=== PATIENT | female | born 1985 | race Caucasian/White ===

== ENCOUNTER → 2020-12-24 17:35 | Outpatient (CLI) | payer OTHER, SELFPAY ==
[2020-12-24 18:48] LABS: Add Manual Diff / Slide Review NO; Basophils Absolute Auto 100 /uL (0-100); Basophils Percent Auto 1.4 % (0-2); Eosinophils Absolute Auto 100 /uL (0-450); Eosinophils Percent Auto 1.2 % (2-4); Hematocrit 42.5 % (36-46); Hemoglobin 14.7 g/dL (12.0-16.0); Lymphocytes Absolute Auto 3300 /uL (1100-4500); Lymphocytes Percent Auto 37.6 % (25-40); Mean Corpuscular HGB Conc 34.6 % (30-36); Mean Corpuscular Hemoglobin 30.9 PG (26-34); Mean Corpuscular Volume 89.2 fL (80-100); Monocytes Absolute Auto 400 /uL (0-900); Monocytes Percent Auto 4.9 % (3-14); Neutrophils Absolute Auto 4800 /uL (1500-7000); Neutrophils Percent Auto 54.9 % (50-75); Platelet Count 302 X10^3/uL (150-400); Red Blood Cell Count 4.77 X10^6/uL (4.0-5.2); Red Cell Distribution Width 12.6 % (11.6-14.8); White Blood Cell Count 8.8 X10^3/uL (4.5-11.0)
== END ==
PROVIDERS: PCP Student in an Organized Health Care Education/Training Program; Referring Provider Student in an Organized Health Care Education/Training Program; Visit Provider Student in an Organized Health Care Education/Training Program
DX: R53.83 Other fatigue (principal)
CPT/HCPCS: 36415; 84443; 85025

== ENCOUNTER → 2021-02-09 16:07 | Outpatient (CLI) | payer OTHER, SELFPAY ==
--- NOTE | 2021-02-09 | DI.US.S_ITS ---
PROCEDURE: US OB <= 14 WEEKS FETUS INDICATIONS: SIZE AND DATES OUTSIDE/PRIOR DATING DATA: Last menstrual period (LMP): 12/15/2020 LMP-based estimated date of delivery (TATY): 09/21/2021. First dating scan (date and location): 02/09/2021. Estimated date of delivery (TATY) from first dating scan: 09/20/2021. TECHNIQUE: Real-time scanning was performed of the fetus and maternal pelvic organs, with image documentation. Endovaginal scanning was also performed to better visualize the fetus and maternal ovaries. COMPARISON: None. FINDINGS: Embryo: Haslett-rump length measures 1.7 cm corresponding to 8 weeks 1 day. Heart rate: 178 Measurement variability in dating: +/- 4 weeks by LMP, +/- 7 days by mean sac diameter (use before 6 weeks gestation if crown-rump length not able to be measured), +/- 5 days by crown-rump length (up to 8 weeks 6 days gestation), +/- 7 days by crown-rump length (up to 13 weeks 6 days gestation). Maternal organs: Ovaries within normal limits, with left corpus luteal cyst . IMPRESSION: 8 week 1 day single living IUP. Dictated by: Jeronimo Monroe [facility] Interpreted: Joy Saleh MD on 02/09/2021 at 16:45 Transcribed by: HINA on 02/09/2021 at 16:46 Approved by: Joy Saleh M.D. on 02/09/2021 at 16:59
== END ==
PROVIDERS: PCP Student in an Organized Health Care Education/Training Program; Referring Provider Student in an Organized Health Care Education/Training Program; Visit Provider Student in an Organized Health Care Education/Training Program
DX: Z34.91 Encounter for supervision of normal pregnancy, unspecified, first trimester (principal); Z3A.08 8 weeks gestation of pregnancy
CPT/HCPCS: 76801; 76817

== ENCOUNTER → 2021-05-24 12:39 | Outpatient (CLI) | payer OTHER, SELFPAY ==
--- NOTE | 2021-05-24 | DI.US.S_ITS ---
PROCEDURE: US OB >= 14 WEEKS FETUS INDICATIONS: ANATOMY OUTSIDE/PRIOR DATING DATA: Last menstrual period (LMP): 12/15/2020 LMP-based estimated date of delivery (TATY): 09/21/2021. First dating scan (date and location): 02/09/2021. Estimated date of delivery (TATY) from first dating scan: 09/20/2021. The calculations are made using the ultrasound TATY of 09/20/2021. TECHNIQUE: Real-time scanning was performed of the fetus, with image documentation and biometric measurements. COMPARISON: [facility], , OB <= 14 WEEKS FETUS, 02/09/2021, 16:16. FINDINGS: General: A single living intrauterine gestation is present. Presentation: Vertex. Placenta: Placental position is posterior , without previa. Amniotic fluid index: 14.3 cm, normal range is 5-24 cm. heart rate: 143 beats per minute. Maternal cervical canal: 3.7 cm long. Normal lower limit is 2.5 cm. biometrics: Biparietal diameter: 22 weeks Head circumference: 22 weeks 4 days Abdominal circumference: 24 weeks 2 days Femur length: 23 weeks 2 days Clinically estimated gestational age: 23 weeks Composite gestational age from present scan: 23 weeks Estimated weight and percentile: 616 g; 75th percentile. Anatomic survey: Neuro: Ventricles are non-dilated at less than 10 mm. Cisterna magna is normal at 3-11 mm. Cerebellum is normal in size and morphology. Nuchal skin fold: Normal at less than 6 mm between 14-21 weeks gestational age. Face: Nose and lips, facial profile are normal. Spine: No evidence for spina bifida. Heart: 4-chambered heart is present, with normal ventricular outflow tracts. Diaphragm: Diaphragm is intact. Stomach: Left-sided stomach is present. Kidneys: No hydronephrosis. Normal is less than 5 mm in 2nd trimester, less than 7 mm in 3rd trimester. Cord: 3-vessel cord has orthotopic insertion. Bladder: Normal in size. Extremities: All 4 extremities identified. IMPRESSION: 1. Normal interval growth. 2. Normal anatomic survey. We strive to produce accurate, complete, and clear reports of imaging services. To assist us in improving patient care, this report was composed using standard report templates and voice recognition software. Therefore, it may contain abnormal punctuation, insertions and/or omissions. Occasional wrong-word or sound-alike substitutions may occur. Though we review the report and make efforts to correct it, we do recommend that the report be read carefully in proper context to recognize any text inaccuracies. Dictated by: Jeronimo FOX Interpreted: Jessika Hartman MD on 05/24/2021 at 13:50 Transcribed by: AJ on 05/24/2021 at 13:54 Approved by: Jessika Hartman M.D. on 05/24/2021 at 14:02
== END ==
PROVIDERS: PCP Student in an Organized Health Care Education/Training Program; Referring Provider Student in an Organized Health Care Education/Training Program; Visit Provider Student in an Organized Health Care Education/Training Program
DX: Z36.89 Encounter for other specified antenatal screening (principal); Z3A.23 23 weeks gestation of pregnancy
CPT/HCPCS: 76811

== ENCOUNTER → 2021-08-27 09:28 | Outpatient (ROUT) | payer OTHER, SELFPAY | PROVIDERS: PCP Student in an Organized Health Care Education/Training Program; Visit Provider Student in an Organized Health Care Education/Training Program | DX: Z36.85 Encounter for antenatal screening for Streptococcus B (principal) | CPT/HCPCS: 87081 ==

== ENCOUNTER 2021-09-22 15:11 | Observation (INO) | payer OTHER, SELFPAY ==
--- NOTE | 2021-09-22 16:12 | DI.US.S_ITS ---
PROCEDURE: US OB BIOPHYSICAL PROFILE INDICATIONS: past dates OUTSIDE/PRIOR DATING DATA: Last menstrual period (LMP): 12/15/2020. LMP-based estimated date of delivery (TATY): 09/21/2021. First dating scan (date and location): 02/09/2021. Estimated date of delivery (TATY) from first dating scan: 09/20/2021. TECHNIQUE: Real-time scanning was performed of the fetus for biophysical profile, with image documentation. Color and pulse Doppler interrogation was also performed of the umbilical artery near its insertion into the placenta. Endovaginal scanning: No COMPARISON: None. FINDINGS: General: A single living intrauterine gestation is present. Presentation: Cephalic. Placenta: Placental position is posterior , without previa. Amniotic fluid index: 13.2 cm, normal range is 5-24 cm. heart rate: 140 beats per minute. Maternal cervical canal: Not visualized Clinically estimated gestational age: 40 week 2 day Biophysical profile: Tone: 2 points. Movement: 2 points. Respiration: 2 points. Largest pocket of fluid: 2 points. , 5.5 cm IMPRESSION: Single live intrauterine consistent with a 40 week 2 day gestation. Biophysical profile 12/06 Approved by: Bobby Ryan M.D. on 09/22/2021 at 16:26
== END 2021-09-22 17:20 | disposition home or self-care (01) ==
PROVIDERS: Admitting Provider Student in an Organized Health Care Education/Training Program; PCP Student in an Organized Health Care Education/Training Program; Referring Provider Student in an Organized Health Care Education/Training Program; Visit Provider Student in an Organized Health Care Education/Training Program
DX: O48.0 Post-term pregnancy (principal); Z3A.40 40 weeks gestation of pregnancy
CPT/HCPCS: 59025; 76819; G0378; G0379

== ENCOUNTER 2021-09-25 10:00 | Outpatient (CLI) | payer OTHER, SELFPAY | END 2021-09-25 10:57 | disposition home or self-care (01) | LOC: OB 09-29 14:00 | PROVIDERS: PCP Student in an Organized Health Care Education/Training Program; Referring Provider Student in an Organized Health Care Education/Training Program; Visit Provider Student in an Organized Health Care Education/Training Program | DX: O48.0 Post-term pregnancy (principal); Z3A.40 40 weeks gestation of pregnancy | CPT/HCPCS: 59025; G0378; G0379 ==

== ENCOUNTER 2021-09-27 19:14 | Inpatient (IN) | payer OTHER, SELFPAY ==
--- NOTE | 2021-09-27 20:13 | P.HPOB_ITS ---
OB HPI Date/Time Date of admission: 09/27/21 Date Patient Seen: 09/27/21 Time Patient Seen: 20:14 History of Present Condition Chief complaint: Narrative: Andrae Chang is a 35 year old at 41w0d with TATY of 09/20/21 per first trimester ultrasound. She presents for induction of labor secondary to post- dates. testing in the 40th week has been within normal limits. Her course was complicated by bacterial vaginosis in the first trimester; treated and resolved. She also had strep pharyngitis in her 37th week that was treated and resolved. LABS/IMAGING: ABO A positive, antibody negative on 01/20/21. Rubella immune. Hepatitis-B surface antigen negative. HIV, HSV 1 and 2 negative. GC/chlamydia negative. Treponemal antibody negative. Varicella titer positive. Pap smear plus HPV DNA negative in 2019. Urine culture negative on 02/23/21. Hemoglobin/hematocrit 13.4/38.7 on 01/20/21. Repeat hemoglobin/hematocrit 12.0/34.4 on 07/29/21. TSH within normal limits. 1 hour Glucola negative on 07/01/21. GBS negative on 08/27/21. NIPT negative, 02/23/21, male. Dating US: 02/09/22, 8w1d, TATY 09/20/21 Anatomy Scan: 05/24/21, 23w0d, normal BPP: 09/22/21, 40w2d, 8/8, SARANYA 13.2 cm OBSTETRIC HISTORY: # 1 Delivery date: 03/02/2019 Weeks Gestation: 40 +2 labor: no Delivery type: Hours of labor: 18 Anesthesia type: epidural Delivery [facility]: [facility] Sex: Male weight: 7lb 9oz Name: Mg GYNECOLOGICAL HISTORY: None PAST MEDICAL HISTORY: depression PAST SURGICAL HISTORY: Tonsillectomy, age 30 Ovarian cyst rupture with cystectomy, 2011 FAMILY HISTORY: Noncontributory SOCIAL HISTORY: to Ki, one child, Mg. 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 Recently moved up from [place] to be closer to family. 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 [facility] Social History Smoking Status: Former smoker Meds Home Medications and Allergies Home Medications Medication Instructions Recorded Confirmed Type 09/27/21 09/27/21 History Allergies Allergy/AdvReac Type Severity Reaction Status Date / Time sulfadiazine Allergy Mild Rash Verified 09/27/21 19:47 Review of Systems Review of Systems Narrative: All remaining ROS were reviewed and negative except as addressed. OB Exam Narrative Exam Narrative: General: NAD Skin: Color unremarkable, no rash nor lesions HEENT: Neck supple with midline trachea Lungs: CTAB Heart: Normal rate, and regular rhythm, S1, S2 normal, no murmur, click, rub or gallop Abdomen: Gravid, soft, non-tender Extremities: No edema, no cyanosis Pelvis: Normal female external genitalia Presentation: vertex Cervix: 1.5/50/-3/posterior/soft Monitoring: Variability: Moderate Baseline: 135 Accelerations: Present Decelerations: few variables Contractions: intermittent Strength: mild Objective Labs Result Diagrams: 09/27/21 20:05 Assessment and Plan Assessment and Plan Assessment and Plan narrative: 1. IUP at 41w0d 2. [id number] 3. Post-dates Plan: Admit to Labor and delivery with routine orders. Cytotec induction followed by pitocin. Anticipate vaginal delivery. Questions answered, appropriate consents will be signed.
[2021-09-27 20:33] LABS: Add Manual Diff / Slide Review NO; Basophils Absolute Auto 100 /uL (0-100); Basophils Percent Auto 0.7 % (0-2); Eosinophils Absolute Auto 100 /uL (0-450); Eosinophils Percent Auto 0.7 % (2-4); Hemoglobin 12.7 g/dL (12.0-16.0); Lymphocytes Absolute Auto 2500 /uL (1100-4500); Lymphocytes Percent Auto 20.7 % (25-40); Mean Corpuscular HGB Conc 34.3 % (30-36); Mean Corpuscular Hemoglobin 30.3 PG (26-34); Mean Corpuscular Volume 88.4 fL (80-100); Monocytes Absolute Auto 600 /uL (0-900); Neutrophils Absolute Auto 8900 /uL (1500-7000); Neutrophils Percent Auto 72.9 % (50-75); Platelet Count 222 X10^3/uL (150-400); Red Blood Cell Count 4.19 X10^6/uL (4.0-5.2); Red Cell Distribution Width 13.1 % (11.6-14.8); White Blood Cell Count 12.2 X10^3/uL (4.5-11.0)
[2021-09-27 20:47] LABS: COVID19 -Nasal RAPID Negative (Negative)
[2021-09-27] MEDS: miSOPROStoL 25 MCG TABLET 50 MCG PO (21:30)
[2021-09-27] MEDS: ZOLPIDEM 5 MG TABLET PO (23:11)
--- NOTE | 2021-09-28 03:11 | PM.OBPRVD ---
Labor & Delivery Narrative: On 09/28/21 at approximately 1:59 a.m and after one dose of cytotec, this 35 year old , GBS negative, female was checked by nurse and found to be 6 cm. She requested an epidural but while awaiting anesthesia, felt an incredible urge to push and under no anesthesia delivered a viable male infant precipitously by nurse with unknown weight and scores of 9/9. Delivery was via normal spontaneous vaginal delivery at 2:14 a.m. There was no nuchal cord. Cord was clamped and cut and handed to mother. Cord blood sent for analysis. This provider was then called to the bedside at 2:21 am. Intact placenta with three-vessel cord was delivered spontaneously at 2:33 am. 10 mg of IM Pitocin was administered. Uterus, cervix, vagina, and rectum explored and found to be intact. Estimated blood loss 50 cc. Patient remained in the delivery room in stable condition. Infant remained in the delivery room in stable condition.
[2021-09-28] MEDS: KETOROLAC 30 MG/ML VIAL IV (03:34)
[2021-09-28] MEDS: PRENATAL VIT,CALC/IRON/FOLIC 1 TABLET 1 TAB PO (09:15)
[2021-09-28] MEDS: IBUPROFEN 600 MG TABLET PO ×2 (09:15→14:47)
[2021-09-29 06:27] LABS: Hematocrit 33.8 % (36-46); Hemoglobin 11.9 g/dL (12.0-16.0)
--- NOTE | 2021-09-29 06:30 | PM.OBDS.1 ---
Discharge Providers Provider Date of admission: 09/27/21 19:14 Discharge Date: 09/29/21 Primary care physician: Elba Son MD Consults: 09/29/21 03:08 Consult to Auditing Control Clerk Routine Comment: Discharge provider: Elba Son MD Summary Hospital Course Date Patient Seen: 09/29/21 Time Patient Seen: 06:30 Diagnoses: 1. 35 yo 2. Status post at 41w1d Hospital Course: Unremarkable. Mother is well. Tolerating full diet with no nausea vomiting. Ambulating well. Lochia less than menses. On day of discharge, she is afebrile with stable vital signs throughout. Time spent on Discharge and Coordination of post-hospital care: 35 minutes Peripartum Data Delivery Method: Natural Vaginal Laceration Description: None Episiotomy description: None Status at Discharge Cognitive/behavioral status at discharge: at baseline, oriented Functional status at discharge: independent ambulation Overall status at discharge: patient is progressing back to baseline Objective Labs Result Diagrams: 09/29/21 06:05 Labs: Laboratory Results - last 24 hr 09/29/21 06:05 Hgb 11.9 L Hct 33.8 L Exam Narrative Exam Narrative: General: NAD Skin: Color unremarkable, no rash nor lesions HEENT: Neck supple with midline trachea Lungs: CTAB Heart: Normal rate, and regular rhythm, S1, S2 normal, no murmur, click, rub or gallop Abdomen: FF at U-3, soft, non-tender, non-distended, positive bowel sounds Extremities: No clubbing, no edema, no cyanosis Pelvis: Normal female external genitalia Discharge Plan Discharge Plan Patient Disposition: Home Provider Discharge Comment: exam (clinic), Mon, 10/13, check in at 2:00 pm. Discharge orders & Medications Prescriptions: New docusate sodium 100 mg Capsule 100 mg PO BID PRN (Reason: constipation) Qty: 15 1RF ibuprofen 600 mg Tablet 600 mg PO Q6HR PRN (Reason: Pain, Mild (1-3)) Qty: 90 1RF Prenatabs Rx 29 mg iron- 1 mg Tablet 1 tab PO DAILY Qty: 90 3RF norethindrone (contraceptive) 0.35 mg tablet 0.35 mg PO DAILY Qty: 90 3RF Continued capsule 0RF Follow up/Referrals: Elba Son MD [Primary Care Provider] - ( follow up appt on 10/13/2021 @ 2:00pm with Dr Son) Diet/Activity/Treatments Diet: Diet as Tolerated Activity: 1. Routine care 2. No driving for 2 weeks. 3. Call or return for uncontrolled pain, fever, intractable nausea or vomiting, trouble with urination, heavy vaginal bleeding greater than 1 pad per hour, suicidal/homicidal thoughts, signs or symptoms of infection, or any other concerns. Visit Report/Discharge Packet Stand Alone Forms: Discharge: Care Discharge Data Primary Care Provider: Elba Son
[2021-09-29 09:38] VITALS: BP 114/71; PULSE 88; RESP 17; TEMP 36.4
== END 2021-09-29 10:00 | disposition home or self-care (01) | DRG 807 ==
PROVIDERS: Admitting Provider Student in an Organized Health Care Education/Training Program; PCP Student in an Organized Health Care Education/Training Program; Referring Provider Student in an Organized Health Care Education/Training Program; Visit Provider Student in an Organized Health Care Education/Training Program
DX: O48.0 Post-term pregnancy (principal); Z37.0 Single live birth; Z3A.41 41 weeks gestation of pregnancy; Z20.822 Contact with and (suspected) exposure to COVID-19
CPT/HCPCS: 36415; 59050; 59200; 85014; 85018; 85025; 86850; 86900; 86901; 87635; C9803; G0379; J1885

== ENCOUNTER → 2022-11-16 11:20 | Outpatient (CLI) | payer OTHER, SELFPAY ==
[2022-11-16 11:54] LABS: Specimen Label Y
[2022-11-16 13:22] LABS: Add Manual Diff / Slide Review NO; Basophils Absolute Auto 0 /uL (0-100); Basophils Percent Auto 0.4 % (0-2); Eosinophils Absolute Auto 100 /uL (0-450); Eosinophils Percent Auto 0.6 % (2-4); Hematocrit 40.4 % (36-46); Lymphocytes Absolute Auto 2300 /uL (1100-4500); Lymphocytes Percent Auto 24.5 % (25-40); Mean Corpuscular HGB Conc 34.7 % (30-36); Mean Corpuscular Volume 86.5 fL (80-100); Monocytes Absolute Auto 400 /uL (0-900); Monocytes Percent Auto 4.5 % (3-14); Neutrophils Absolute Auto 6600 /uL (1500-7000); Platelet Count 262 X10^3/uL (150-400); Red Blood Cell Count 4.67 X10^6/uL (4.0-5.2); Red Cell Distribution Width 13.2 % (11.6-14.8); White Blood Cell Count 9.4 X10^3/uL (4.5-11.0)
[2022-11-17 08:45] LABS: RPR Screen Non Reactive (Non Reactive)
[2022-11-17 12:31] LABS: Varicella IgG Antibody 1156 index (Immune >165)
[2022-11-18 17:28] LABS: Hepatitis B Surface Antigen NEGATIVE s/c (NEGATIVE); Rubella Antibody IgG 8.7 IU/mL (>15)
[2022-11-18 17:46] LABS: HIV 1 & 2 Ab/Ag 4th Gen Combo NEGATIVE (NEGATIVE); Hep C Virus Ab w/Reflex Quant NEGATIVE s/c (NEGATIVE)
== END ==
PROVIDERS: PCP Student in an Organized Health Care Education/Training Program; Referring Provider Obstetrics & Gynecology; Visit Provider Obstetrics & Gynecology
DX: Z34.80 Encounter for supervision of other normal pregnancy, unspecified trimester (principal)
CPT/HCPCS: 36415; 80055; 86787; 86803; 86850; 86900; 86901; 87086; 87389

== ENCOUNTER → 2023-01-03 15:21 | Outpatient (CLI) | payer OTHER, SELFPAY ==
[2023-01-05 20:18] LABS: AFP Value 35.9 ng/mL (.); Insulin Dep Diabetes No (.); OSBR Risk 1IN 10000 (.); Results Report (.); Test Results *Screen Negative* (.)
== END ==
PROVIDERS: PCP Student in an Organized Health Care Education/Training Program; Referring Provider Obstetrics & Gynecology; Visit Provider Obstetrics & Gynecology
DX: Z34.82 Encounter for supervision of other normal pregnancy, second trimester (principal); O09.519 Supervision of elderly primigravida, unspecified trimester; Z3A.17 17 weeks gestation of pregnancy
CPT/HCPCS: 36415; 82105

== ENCOUNTER → 2023-01-23 16:16 | Outpatient (CLI) | payer OTHER, SELFPAY ==
--- NOTE | 2023-01-23 16:18 | DI.US.S_ITS ---
PROCEDURE: US OB >= 14 WEEKS FETUS INDICATIONS: ANATOMY OUTSIDE/PRIOR DATING DATA: Last menstrual period (LMP): 09/06/2022 LMP-based estimated date of delivery (TATY): 06/13/2023 First dating scan (date and location): 01/23/2023. Estimated date of delivery (ATTY) from first dating scan: 06/12/2023. Working TATY is 06/13/2023 TECHNIQUE: Real-time scanning was performed of the fetus, with image documentation and biometric measurements. COMPARISON: [facility], US, US OB <= 14 WEEKS FETUS, 12/06/2022, 14:49. FINDINGS: General: A single living intrauterine gestation is present. Presentation: Vertex. Placenta: Placental position is anterior , without previa. Amniotic fluid index: 18.8 cm, normal range is 5-24 cm. Single deepest vertical pocket is 5.5 cm. heart rate: 149 beats per minute. Maternal cervical canal: 4.9 cm long. Normal lower limit is 2.5 cm. biometrics: Biparietal diameter: 20 weeks Head circumference: 19 weeks 6 days Abdominal circumference: 20 weeks 1 day Femur length: 19 weeks 6 days Clinically estimated gestational age: 19 weeks 6 days Composite gestational age from present scan: 20 weeks 0 days Estimated weight and percentile: 326 g; 54th percentile Anatomic survey: Neuro: Ventricles are non-dilated at less than 10 mm. Cisterna magna is normal at 3-11 mm. Cerebellum is normal in size and morphology. Nuchal skin fold: Normal at less than 6 mm between 14-21 weeks gestational age. Face: Nose and lips, facial profile are normal. Spine: No evidence for spina bifida. Heart: 4-chambered heart is present, and cardiac outflow tracts are not well seen. Diaphragm: Diaphragm is intact. Stomach: Left-sided stomach is present. Kidneys: No hydronephrosis. Normal is less than 5 mm in 2nd trimester, less than 7 mm in 3rd trimester. Cord: 3-vessel cord has orthotopic insertion. Bladder: Normal in size. Extremities: All 4 extremities identified. IMPRESSION: 1. Single living IUP with composite gestational age of 20 weeks 0 days corresponding to ultrasound TATY of 06/12/2023. 2. Outflow tracts not well seen; otherwise normal anatomic survey. Follow-up recommended. We strive to produce accurate, complete, and clear reports of imaging services. To assist us in improving patient care, this report was composed using standard report templates and voice recognition software. Therefore, it may contain abnormal punctuation, insertions and/or omissions. Occasional wrong-word or sound-alike substitutions may occur. Though we review the report and make efforts to correct it, we do recommend that the report be read carefully in proper context to recognize any text inaccuracies. Dictated by: Jeronimo FOX Interpreted: Fareed Duron MD on 01/23/2023 at 20:36 Transcribed by: VANNA on 01/24/2023 at 8:53 Approved by: Fareed Duron M.D. on 01/25/2023 at 6:48
== END ==
PROVIDERS: PCP Student in an Organized Health Care Education/Training Program; Referring Provider Obstetrics & Gynecology; Visit Provider Obstetrics & Gynecology
DX: Z34.82 Encounter for supervision of other normal pregnancy, second trimester (principal); Z3A.20 20 weeks gestation of pregnancy
CPT/HCPCS: 76811

== ENCOUNTER → 2023-02-13 08:21 | Outpatient (CLI) | payer OTHER, SELFPAY ==
--- NOTE | 2023-02-13 08:21 | DI.US.S_ITS ---
PROCEDURE: US OB FOLLOW UP INDICATIONS: f/u US anatomy OUTSIDE/PRIOR DATING DATA: Last menstrual period (LMP): September 06, 2022. LMP-based estimated date of delivery (TATY): June 13, 2023. First dating scan (date and location): November 08, 2022. Estimated date of delivery (TATY) from first dating scan: June 13, 2023. TECHNIQUE: Real-time scanning was performed of the fetus, with image documentation and biometric measurements. COMPARISON: [facility], US, US OB <= 14 WEEKS FETUS, 11/08/2022, 15:20. FINDINGS: General: A single living intrauterine gestation is present. Presentation: Vertex. Placenta: Placental position is anterior , without previa. Amniotic fluid index: 15.3 cm, normal range is 5-24 cm. Single deepest vertical pocket is 4.7 cm. heart rate: 160 beats per minute. Maternal cervical canal: 4.1 cm long. Normal lower limit is 2.5 cm. Other: Ventricular outflow tracks and four-chamber heart have a normal sonographic appearance. IMPRESSION: Single live intrauterine gestation with a gestational age of 22 weeks, 6 days by previous study. Ventricular outflow tracts and four-chamber heart have a normal sonographic appearance. We strive to produce accurate, complete, and clear reports of imaging services. To assist us in improving patient care, this report was composed using standard report templates and voice recognition software. Therefore, it may contain abnormal punctuation, insertions and/or omissions. Occasional wrong-word or sound-alike substitutions may occur. Though we review the report and make efforts to correct it, we do recommend that the report be read carefully in proper context to recognize any text inaccuracies. Dictated by: Marilyn Israel M.D. on 02/13/2023 at 10:07 Approved by: Marilyn Israel M.D. on 02/13/2023 at 10:09
== END ==
PROVIDERS: PCP Student in an Organized Health Care Education/Training Program; Referring Provider Obstetrics & Gynecology; Visit Provider Obstetrics & Gynecology
DX: Z34.80 Encounter for supervision of other normal pregnancy, unspecified trimester (principal); Z3A.22 22 weeks gestation of pregnancy
CPT/HCPCS: 76816

== ENCOUNTER → 2023-03-07 10:51 | Outpatient (CLI) | payer OTHER, SELFPAY ==
[2023-03-07 12:43] LABS: Hematocrit 35.3 % (36-46)
[2023-03-07 13:29] LABS: GTT (PREG) 1 Hour PP 50gm Dose 94 mg/dL (76-139)
== END ==
PROVIDERS: PCP Student in an Organized Health Care Education/Training Program; Referring Provider Specialist; Visit Provider Specialist
DX: Z34.82 Encounter for supervision of other normal pregnancy, second trimester (principal); Z3A.25 25 weeks gestation of pregnancy
CPT/HCPCS: 36415; 82950; 85014; 85018

== ENCOUNTER → 2023-05-19 14:42 | Outpatient (CLI) | payer BC, SELFPAY ==
[2023-05-21 07:47] LABS: Strep Grp B PCR NEG for Grp B Strep
== END ==
PROVIDERS: Visit Provider Specialist
DX: Z34.83 Encounter for supervision of other normal pregnancy, third trimester (principal); Z3A.36 36 weeks gestation of pregnancy
CPT/HCPCS: 87653

== ENCOUNTER 2023-06-12 17:10 | Inpatient (IN) | payer BC, SELFPAY ==
[2023-06-12 17:57] LABS: Add Manual Diff / Slide Review NO; Basophils Absolute Auto 100 /uL (0-100); Basophils Percent Auto 0.8 % (0-2); Eosinophils Absolute Auto 100 /uL (0-450); Eosinophils Percent Auto 0.5 % (2-4); Hematocrit 36.7 % (36-46); Hemoglobin 12.5 g/dL (12.0-16.0); Lymphocytes Absolute Auto 2300 /uL (1100-4500); Lymphocytes Percent Auto 19.3 % (25-40); Mean Corpuscular HGB Conc 34.1 % (30-36); Mean Corpuscular Hemoglobin 29.9 PG (26-34); Mean Corpuscular Volume 87.6 fL (80-100); Monocytes Absolute Auto 800 /uL (0-900); Monocytes Percent Auto 6.6 % (3-14); Neutrophils Absolute Auto 8600 /uL (1500-7000); Neutrophils Percent Auto 72.8 % (50-75); Platelet Count 255 X10^3/uL (150-400); Red Cell Distribution Width 13.1 % (11.6-14.8); White Blood Cell Count 11.7 X10^3/uL (4.5-11.0)
[2023-06-12 18:05] LABS: Aspartate Aminotransferase 27 IU/L (14-36); BUN Creatinine Ratio 23.6 (6-22); Blood Urea Nitrogen 13 mg/dL (7-17); Estimated Glomerular Filt Rate > 60 mL/min (>60); Uric Acid 4.7 mg/dL (2.5-6.2)
--- NOTE | 2023-06-12 19:20 | PM.AN.REGBLK ---
Regional Block Pre-procedure Procedure: Continuous Lumbar Epidural for L&D Attending OB provider: Brandy Armstrong PMH/ROS narrative: full term healthy 37yo female Hx: No personal or family history of anesthesia problems. PSH/Anesthesia history narrative: Tonsillectomy, no history of reaction to anesthesia ASA Class: II Labs: Hct 36.7 % (36-46) 06/12/23 17:40 Plt Count 255 X10^3/uL (150-400) 06/12/23 17:40 Medications: Current Medications Generic Name Dose Route Start Last Admin Trade Name Freq PRN Reason Stop Dose Admin Carboprost Tromethamine 250 mcg 06/12/23 17:49 Carboprost 250 Mcg/Ml Ampul IM Q90M PRN Bleeding Diphenhydramine HCl 25 mg 06/12/23 19:17 Diphenhydramine 50 Mg/Ml Vial IV Q10M PRN Pruritis Ephedrine Sulfate 5 mg 06/12/23 19:17 Ephedrine 50 Mg/Ml Vial IV Q5M PRN Blood pressure decrease more than 20% of baseline. Oxytocin/Lactated Ringer's 30 unit in 500 mls @ 200 mls/hr 06/12/23 17:49 Oxytocin Premix IV CONT PRN Bleeding Protocol Tranexamic Acid 1,000 mg/ 100 mls @ 200 mls/hr 06/12/23 17:49 Sodium Chloride IV NOW PRN Bleeding Lactated Ringer's 1,000 mls @ 100 mls/hr 06/12/23 18:00 Lactated Ringers IV CONT CARROLL FENT 2MCG/ML BUPIV 0.125% EPI 200 mcg in 100 mls @ 8 mls/hr 06/12/23 18:40 Fentanyl/Bupiv/Ns 2mcg/Ml - 0.125% EPIDURAL CONT CARROLL Lidocaine HCl 20 ml 06/12/23 17:49 Lidocaine 1% 20 Ml INJ INTRA-OP PRN Post Delivery Methylergonovine Maleate 0.2 mg 06/12/23 17:49 Methylergonovine 0.2 Mg Tablet PO Q6HR PRN Heavy Bleeding Methylergonovine Maleate 0.2 mg 06/12/23 17:49 Methylergonovine 0.2 Mg/Ml Vial IM NOW PRN Bleeding Misoprostol 800 mcg 06/12/23 17:49 Misoprostol 200 Mcg Tablet AR NOW PRN Bleeding Misoprostol 400 mcg 06/12/23 17:49 Misoprostol 200 Mcg Tablet SL NOW PRN Bleeding Nalbuphine HCl 2.5 mg 06/12/23 19:17 Nalbuphine 20 Mg/Ml Ampul IV Q10M PRN Pruritis Naloxone HCl 0.2 mg 06/12/23 17:49 Naloxone 0.4 Mg/Ml Vial IV Q2MIN PRN Opiate Reversal Oxytocin 10 unit 06/12/23 17:49 Oxytocin 10 Unit/Ml Vial IM NOW PRN Bleeding Allergies: Allergies Allergy/AdvReac Type Severity Reaction Status Date / Time sulfadiazine Allergy Mild Rash Verified 06/09/23 08:08 Procedure Insertion date: 06/12/23 Insertion time: 18:32 Prep/Local: betadine x3 and 1% lidocaine Interspace: L3-L4 Patient position: sitting Needle: 18 gauge Hustead Loss of resistance with: saline (+Air) FUAD at (cm): 8 Catheter placed at SKIN (cm): 14 Catheter in SPACE (cm): 6 Insertion: No CSF, No Blood, No Paresthesia with insertion, No Paresthesia with injection and No Test dose reaction Initial Medications TEST DOSE time: 18:33 TEST DOSE: 1.5% lidocaine with epinephrine 1:200k (mL): 3 BOLUS DOSE time: 18:33 BOLUS DOSE (mL): 7 BOLUS DOSE med: other (2% Lidocaine) Infusion INFUSION: 0.125% bupivacaine and with fentanyl 2 mcg/mL Initial rate (mL/hr): 8 Subsequent interventions: PCEA dose 5ml, 20min Lockout, 23ml one hour limit. Bolus 5ml 2%Lidocaine x2. Still feeling pelvic pressure. OB doc called for delivery. Post-procedure Anesthesia date START: 06/12/23 Anesthesia time START: 18:09 Anesthesia date END: 06/12/23 Anesthesia time END: 19:25 Post-procedure Anesthesia Assessment: Yes CV function: HR/BP stable, Yes Resp function: RR/sat/airway adequate, Yes Post-op hydration adequate, Yes Pain control adequate, Yes Nausea & vomiting absent, Yes Temperature > 36 C and Yes Mental status appropriate
--- NOTE | 2023-06-12 20:17 | P.HPOB_ITS ---
OB HPI Date/Time Date of admission: 06/12/23 Date Patient Seen: 06/12/23 Time Patient Seen: 17:30 History of Present Condition Chief complaint: OB TATY Calculator 2 Estimated Delivery Date Method Current WG Current Estimate 06/13/23 LMP (Uncertain) 40w 1d Other Estimates 06/16/23 Ultrasound #1 39w 5d Estimated Gestational Age (weeks): 39+6 : 3 Para: 2 care: good care, initiated at week # (9), number of visits (12) and pounds weight gain (19) Dating criteria OB: LMP confirmed by 1st trimester US Ultrasounds: normal 1st trimester US and normal mid trimester US Obstetrical complications: none Medical complications OB: none Preadmission Labs Last OB Lab Results: 2 Blood Type A Positive 06/12/23 17:40 Antibody Screen Negative 06/12/23 17:40 Hematocrit 34.1 % (36-46) L 06/13/23 05:35 Hemoglobin 11.7 g/dL (12.0-16.0) L 06/13/23 05:35 Hepatitis B Surface Antigen Negative s/c (NEGATIVE) 11/16/22 11 :28 Hepatitis C Antibody Negative s/c (NEGATIVE) 11/16/22 11:28 Rubella Antibody 8.7 IU/mL (>15) L 11/16/22 11:28 Varicella-Zoster IgG Antibody 1156 index (Immune >165) 11/16/22 11:28 Glucose 1 Hour 94 mg/dL (76-139) 03/07/23 12:03 Group B Streptococcus (PCR) Neg for grp b strep 05/19/23 14:42 -: Chlamydia screen: negative, Gonorrhea screen: negative and Urine: negative -: PAP smear: Normal Genetic Screens: Cell-free DNA: Normal and Alpha-fetoprotein: Normal External Labs -: Urine: negative Prior (ies) Past Pregnancies Del. Date GA/Weeks Labor Lgth Wt Sex Route Outcome Anesthesia Place Delv Breastfeed Preg Comp Name 03/02/19 40.2 19 7 lb 9 oz Male vaginal live - full ter [facility] 11 months none [place] 09/28/21 41.3 3 7 lb 9 oz Male vaginal live - full term [facility] Still going as of 11/03/22 post-dates induction [place] Evaluation Evaluation Baseline heart rate: 135 Variability: Moderate (11-25) monitor accelerations: Present Monitor Decelerations: Absent Contraction Frequency (minutes): 3 Uterine Contraction Intensity: Strong/Firm Status: Category l Dilation (cm): 5 Effacement (%): 100 station: +1 Position of cervix: anterior Consistency: soft PFSH Medical History (Updated 03/27/23 @ 16:39 by Danyell Buckley DO) Cystocele affecting period Chicken pox (~1994) Abnormal Pap smear of cervix (~2012) Surgical History (Updated 11/19/21 @ 18:22 by Mariah Sutherland) Anesthesia History of tonsillectomy (~2015) Ovarian cyst (~2011) Family History (Updated 11/03/22 @ 09:54 by Deidre Bennett RN) Grandmother Breast cancer Grandfather Stroke Family/Other DVT (deep venous thrombosis) Social History (System 11/19/21 @ 16:18 by Sinan Palomo) marital status: number of children: 2 household members: spouse and children lives independently: Yes caregiver/support person: Yes housing: house pets and animals: Yes (2 dogs) education level: college (some college) occupational status: unemployed current occupational exposures/hazards: No special destinee needs: No travel history: recent (domestic only) seatbelt use: always helmet use: Yes water heater temp set < 120 deg: Yes working smoke detector in home: Yes fire extinguisher in home: No carbon monox detector in home: Yes firearms in home: Yes firearms unloaded and locked: Yes do you feel safe at home: Yes Smoking Status: Former smoker (Quit age 24) Tobacco: How many years used: 2 (off and on) second hand exposure: No alcohol intake: former (very occasionally when not ) substance use type: does not use during the past year weight has: remained stable well-balanced diet: daily or most days daily servings fruits/ve or more times/day caffeine: Yes (1-2 shots espresso/day) Type(s) of exercise: weight lifting and yoga frequency: 5-6 times per week Meds Home Medications and Allergies Home Medications Medication Instructions Recorded Confirmed Type See Rx Instructions .Route .COMPLEX 09/27/21 06/12/23 History docosahexaenoic acid 300 mg 500 mg PO DAILY 11/03/22 06/12/23 History capsule (DHA Algal-900) Allergies Allergy/AdvReac Type Severity Reaction Status Date / Time sulfadiazine Allergy Mild Rash Verified 06/09/23 08:08 OB Exam Narrative Exam Narrative: Gen: Moderate distress secondary to contractions FH: 39 cm EFW: 7 1/2 pounds Ext: No edema Objective Labs 06/13/23 05:35 06/12/23 17:40 Labs: Laboratory Results - last 24 hr 06/12/23 17:40 WBC 11.7 H RBC 4.20 Hgb 12.5 Hct 36.7 MCV 87.6 MCH 29.9 MCHC 34.1 RDW 13.1 Plt Count 255 Neut % (Auto) 72.8 Lymph % (Auto) 19.3 L [place] % (Auto) 6.6 Eos % (Auto) 0.5 L Baso % (Auto) 0.8 Neut # (Auto) 8600 H Lymph # (Auto) 2300 [place] # (Auto) 800 Eos # (Auto) 100 Baso # (Auto) 100 BUN 13 Creatinine 0.55 Estimated GFR > 60 BUN/Creatinine Ratio 23.6 H Uric Acid 4.7 AST 27 Blood Type A Positive Antibody Screen Negative Assessment and Plan Assessment and Plan Assessment and Plan narrative: Assessment: 37 yr old in active labor Plan: Epidural prn AROM when comfortable Expectant management to Time Spent with Patient Total time spent with greater than 50% in coordination of care (as documented) at patient's floor/unit and/or counseling patient:: 15-24 minutes
--- NOTE | 2023-06-12 20:17 | PM.OBDS.1 ---
Discharge Providers Provider Date of admission: 06/12/23 17:10 Discharge Date: 06/12/23 Primary care physician: Doctor Tyler MD Consults: 06/12/23 17:49 Consult to Anesthesiology Urgent Comment: Consulting Provider: Jake Thomas Reason for consultation: Epidural Discharge provider: Brandy Armstrong MD Summary Hospital Course Date Patient Seen: 06/13/23 Time Patient Seen: 07:35 Diagnoses: 39+6 weeks gestation Spontaneous vaginal delivery Hospital Course: Patient is a 37 year old who presented on 06/12/23 in active labor dilated to 5cm. She received an epidural for pain management. AROM was performed. She had an without complication. Her course was unremarkable and she was discharged to home on 06/13/23. Peripartum Data Infant Delivery Method: Natural Vaginal Episiotomy description: None Procedures: Epidural analgesia Artificial rupture of membranes complications: none [place] 1: Gender: Male Status at Discharge Cognitive/behavioral status at discharge: oriented Functional status at discharge: independent ambulation Overall status at discharge: patient is progressing back to baseline Time Spent with Patient Time attestation: Total time spent providing and/or coordinating discharge services: Time spent: Less than 30 minutes Objective Labs 06/13/23 05:35 06/12/23 17:40 Labs: Laboratory Results - last 24 hr 06/12/23 17:40 WBC 11.7 H RBC 4.20 Hgb 12.5 Hct 36.7 MCV 87.6 MCH 29.9 MCHC 34.1 RDW 13.1 Plt Count 255 Neut % (Auto) 72.8 Lymph % (Auto) 19.3 L [place] % (Auto) 6.6 Eos % (Auto) 0.5 L Baso % (Auto) 0.8 Neut # (Auto) 8600 H Lymph # (Auto) 2300 [place] # (Auto) 800 Eos # (Auto) 100 Baso # (Auto) 100 BUN 13 Creatinine 0.55 Estimated GFR > 60 BUN/Creatinine Ratio 23.6 H Uric Acid 4.7 AST 27 Blood Type A Positive Antibody Screen Negative Exam Narrative Exam Narrative: Gen: Sitting up in bed Fundus: Firm U/-1 Ext: No edema, negative Amarilis's Discharge Plan Discharge Plan Patient Disposition: Home Provider Discharge Comment: Call with fever, chills, or bleeding vaginally more than a pad in an hour Ibuprofen 600 mg every 6 hours as needed for cramping Continue vitamins Discharge orders & Medications Prescriptions: Continued DHA Algal-900 300 mg capsule 500 mg PO DAILY capsule See Rx Instructions .ROUTE .COMPLEX Rx Instructions: Take as directed Follow up/Referrals: Brandy Armstrong MD [Physician] - 07/24/23 2:15 pm (Please check in at 14:00 for 14:15 appt. ) Diet/Activity/Treatments Diet: Regular Activity: Nothing in the vagina and till 6 week exam Skin/Wound/Dressing Care Report to your healthcare provider any signs of infection, such as:: chills, fever, increased pain and unusual drainage Visit Report/Discharge Packet Instructions: DI for Labor and Delivery, Vaginal Stand Alone Forms: Discharge: Care, Patient Portal/API, Stroke Signs & Symptoms Discharge Data Primary Care Provider: Miscellaneous,Doctor
--- NOTE | 2023-06-12 20:18 | P.PCNOB_ITS ---
Labor & Delivery Delivery date: 06/12/23 Intrapartal Events: None Cervical ripening method: none Induction method: none Delivery augmentation: rupture of membranes Delivery monitor: external FHT and external uterine Route of delivery: Episiotomy description: None L&D Laceration Description: None Quantitative Blood Loss: 100 Anesthesia Type: Epidural Complications: None Narrative: Patient complete and pushed at 15 min. At 1825, a live male infant delivered spontaneously in the EMEKA presentation over an intact perineum. No nuchal cord. The remainder of the body delivered without difficulty and placed on mom's abdo men. Pitocin was given in the IVF's. The cord was double-clamped and cut after the cord stopped pulsing. Cord bloods were obtained. The placenta delivered intact with a 3-vessel cord at 1854. The fundus was massaged to firm. The perineum and vagina were inspected and there were no laceration. Epidural. 's 9 and 9. . Mom and stable to recovery. [place] Baby 1: gender: Male Presentation: vertex Position: Right Occiput Anterior Placenta delivery description: Spontaneous Cord Vessel Description: 3 Vessels score (1 min): 9 score (5 min): 9 weight: 7 lb 9 oz Plan for aftercare: Routine care
[2023-06-12] MEDS: DERMOPLAST SPRAY 20% 60 ML 1 SPRAY TOP (21:41)
[2023-06-12] MEDS: LANOLIN OINT 7 GM 1 APPLIC TOP (21:41)
[2023-06-12] MEDS: IBUPROFEN 600 MG TABLET PO (21:42)
[2023-06-13] MEDS: IBUPROFEN 600 MG TABLET PO ×2 (03:12→09:40)
[2023-06-13 05:52] LABS: Hematocrit 34.1 % (36-46); Hemoglobin 11.7 g/dL (12.0-16.0)
[2023-06-13] MEDS: PRENATAL VIT,CALC/IRON/FOLIC 1 TABLET 1 TAB PO (09:40)
[2023-06-13] MEDS: DOCUSATE 100 MG CAPSULE PO (09:40)
== END 2023-06-13 14:35 | disposition home or self-care (01) | DRG 807 ==
PROVIDERS: Admitting Provider Obstetrics & Gynecology; Referring Provider Obstetrics & Gynecology; Visit Provider Obstetrics & Gynecology
DX: O80 Encounter for full-term uncomplicated delivery (principal); Z37.0 Single live birth; Z3A.39 39 weeks gestation of pregnancy
CPT/HCPCS: 36415; 59050; 59400; 84450; 84550; 85014; 85018; 85025; 86850; 86900; 86901; G0379